=== PATIENT | female | born 1970 | race Caucasian/White ===

== ENCOUNTER 2016-10-05 12:30 | Emergency (ER) | payer OTHER ==
[2013-09-15 18:25] VITALS: BMI 28.7
[~2016-10-05 12:30] MED LIST: ACETAMINOPHEN500 M1; ACETAMINOPHEN500 M1 PO; ACIPHEX20 MG; ACIPHEX20 MG PO; CYMBALTA60 MG PO; DYAZIDE 37.5/251 CAP PO; ESTRACE1 MG PO; K-DUR20 MEQ PO; MIRALAX17 GM PO; NEURONTIN600 MG PO; NORCO 10/325 TA1 TA1 PO; PHENERGAN25 M1 PO; RELPAX20 MG PO; SOMA350 MG PO; TOPAMAX50 MG PO; TOPROL XL50 MG PO; VIVELLE-DO1 PATCH.B1 TD; XANAX0.5 MG PO
[2016-10-05 13:04] LABS: BASOPHILS 0.3 % (0-2); EOSINOPHILS 0.9 % (0-7); HEMATOCRIT 42.5 % (36.0-48.0); HEMOGLOBIN 14.3 g/dL (12-16); IMMATURE GRANULOCYTES 0.3 % (0-5); LYMPHOCYTES 33.7 % (15-50); MCH 29.6 pg (26.0-34.0); MCHC 33.6 g/dL (31.0-37.0); MEAN PLATELET VOLUME 8.8 fL (7.4-10.4); MONOCYTES 7.2 % (2-11); NEUTROPHILS 57.6 % (40-80); RBC 4.83 10x6/uL (4.00-5.40); RDW 13.5 % (11.5-14.5); WBC 9.1 10x3/uL (4.8-10.8)
[2016-10-05 13:11] LABS: PLATELET COUNT 230 10x3/uL (130-400)
[2016-10-05 13:13] LABS: ALBUMIN 3.2 g/dL (3.4-5.0); ALKALINE PHOSPHATASE 92 U/L (46-116); ALT (SGPT) 20 U/L (10-68); BILIRUBIN - TOTAL 0.28 mg/dL (0.2-1.3); CALC OSMOLALITY 277 mosm/kg (275-300); CALCIUM 8.7 mg/dL (8.5-10.1); CARBON DIOXIDE 38.4 mmol/L (21.0-32.0); CHLORIDE - SERUM 99 mmol/L (98-107); CREATININE - SERUM 0.8 mg/dL (0.6-1.3); GLUCOSE 108 mg/dL (74-106); PROTEIN - SERUM 7.2 g/dL (6.4-8.2); SODIUM 140 mmol/L (136-145); UREA NITROGEN 8 mg/dL (7-18); eGFR NON AFRICAN AMERICAN 81 mL/min (90-120)
[2016-10-05 13:29] LABS: UDS - AMPHET NEGATIVE QUAL (NEGATIVE); UDS - BARB NEGATIVE QUAL (NEGATIVE); UDS - BENZO NEGATIVE QUAL (NEGATIVE); UDS - COCAINE NEGATIVE QUAL (NEGATIVE); UDS - METH NEGATIVE QUAL (NEGATIVE); UDS - OPIATE NEGATIVE QUAL (NEGATIVE); UDS - PCP NEGATIVE QUAL (NEGATIVE); UDS - THC NEGATIVE QUAL (NEGATIVE)
[2016-10-05 13:32] LABS: POTASSIUM - SERUM 2.9 mmol/L (3.5-5.1)
[2016-10-05 13:35] LABS: APPEARANCE CLEAR (CLEAR); BILIRUBIN NEGATIVE (NEGATIVE); COLOR STRAW (YELLOW); GLUCOSE NEGATIVE (NEGATIVE); KETONE NEGATIVE (NEGATIVE); LEUKOCYTE ESTERASE NEGATIVE (NEGATIVE); NITRITE NEGATIVE (NEGATIVE); PROTEIN NEGATIVE (NEGATIVE); SPECIFIC GRAVITY 1.005 (1.005-1.020); UROBILINOGEN NORMAL (NORMAL)
== END 2016-10-05 17:30 | disposition home or self-care (01) ==
LOC: D.ER 12:30
PROVIDERS: Emergency Medicine; Nurse Practitioner Family
DX: R55 Syncope and collapse (principal); E87.6 Hypokalemia; R53.1 Weakness

== ENCOUNTER 2016-11-04 08:52 | Emergency (ER) | payer OTHER ==
[2013-09-15 18:25] VITALS: BMI 28.7
[2016-11-04 09:40] LABS: BASOPHILS 0.3 % (0-2); EOSINOPHILS 0.8 % (0-7); HEMATOCRIT 40.2 % (36.0-48.0); HEMOGLOBIN 13.4 g/dL (12-16); IMMATURE GRANULOCYTES 0.3 % (0-5); LYMPHOCYTES 32.9 % (15-50); MCH 29.9 pg (26.0-34.0); MCHC 33.3 g/dL (31.0-37.0); MCV 89.7 fL (80.0-100.0); MEAN PLATELET VOLUME 9.1 fL (7.4-10.4); MONOCYTES 7.8 % (2-11); NEUTROPHILS 57.9 % (40-80); PLATELET COUNT 197 10x3/uL (130-400); RBC 4.48 10x6/uL (4.00-5.40); RDW 13.8 % (11.5-14.5); WBC 8.7 10x3/uL (4.8-10.8)
[2016-11-04 10:11] LABS: ANION GAP 11.2 mmol/L (8-16); BILIRUBIN - TOTAL 0.2 mg/dL (0.2-1.3); CALCIUM 8.3 mg/dL (8.5-10.1); CARBON DIOXIDE 30.1 mmol/L (21.0-32.0); CREATININE - SERUM 0.9 mg/dL (0.6-1.3); POTASSIUM - SERUM 3.3 mmol/L (3.5-5.1); PROTEIN - SERUM 6.1 g/dL (6.4-8.2)
[2016-11-04 11:15] LABS: APPEARANCE CLEAR (CLEAR); BILIRUBIN NEGATIVE (NEGATIVE); COLOR YELLOW (YELLOW); GLUCOSE NEGATIVE (NEGATIVE); KETONE NEGATIVE (NEGATIVE); LEUKOCYTE ESTERASE NEGATIVE (NEGATIVE); NITRITE NEGATIVE (NEGATIVE); PROTEIN NEGATIVE (NEGATIVE); UROBILINOGEN NORMAL (NORMAL)
== END 2016-11-04 15:26 | disposition home or self-care (01) ==
LOC: D.ER 08:52
PROVIDERS: Emergency Medicine
DX: R55 Syncope and collapse (principal); R51 Headache

== ENCOUNTER 2018-10-31 06:05 | Day surgery (SDC) | payer OTHER ==
[~2018-10-31] VITALS: Ht 154.9 cm; Wt 74.4 kg
[~2018-10-31 06:05] MED LIST changes: -DYAZIDE 37.5/251 CAP PO; +MAXZIDE 75/501 TAB PO
[2018-10-31 06:28] LABS: HEMOGLOBIN 13.9 g/dL (12-16); MCH 29.1 pg (26.0-34.0); MCHC 33.9 g/dL (31.0-37.0); RBC 4.77 10x6/uL (4.00-5.40); RDW 14.4 % (11.5-14.5); WBC 8.4 10x3/uL (4.8-10.8)
[2018-10-31] MEDS ORDERED: POTASSIUM CHLO10 ME1 PO (07:46)
[2018-10-31] MEDS ORDERED: NEURONTIN800 MG PO (07:46)
[2018-10-31] MEDS ORDERED: BACLOFEN20 M1 PO (07:47)
[2018-10-31] MEDS ORDERED: MAXALT10 MG PO (07:47)
[2018-10-31] MEDS ORDERED: ARTHROTEC EC 71 EACH PO (07:48)
[2018-10-31] MEDS ORDERED: ATIVAN1 MG PO (07:48)
[2018-10-31] MEDS ORDERED: [UNRECOGNIZED DRUG - CODE] (07:49)
[2018-10-31] MEDS ORDERED: REQUIP5 MG PO (07:49)
[2018-10-31] MEDS ORDERED: LISINOPRIL10 MG PO (07:49)
[2018-10-31] MEDS ORDERED: MAGNESIUM OXID500 MG PO (07:50)
[2018-10-31] MEDS ORDERED: B-12 (07:51)
[2018-10-31] MEDS ORDERED: TRAZODONE HCL150 MG PO (07:51)
[2018-10-31] MEDS ORDERED: ULTRAM50 MG PO (07:52)
[2018-10-31] MEDS ORDERED: MECLIZINE HCL25 MG PO (07:52)
[2018-10-31] MEDS ORDERED: TESSALON PERLE100 MG PO (07:53)
[2018-10-31 07:58] VITALS: BP 120/69; Ht 154.9 cm; Wt 74.4 kg
--- NOTE | 2018-10-31 12:51 | NUR ---
SCOPE PATCH BEHIND LEFT EAR ON ADMIT
--- NOTE | 2018-10-31 15:39 | NUR ---
IV REMOVED 1525 VOIDED ON BEDSIDE COMMODE AT 1530
--- NOTE | 2018-11-07 07:45 | OP ---
PATIENT NAME: STEFANI KESSLER MEDICAL RECORD: [id number] :68 LOCATION:D.OPS ADMISSION DATE: SURGEON: GENO REYES DPM DATE OF OPERATION: 10/31/2018 PREOPERATIVE DIAGNOSES: 1. Right ankle arthritis with capsulitis. 2. Right ATF rupture. POSTOPERATIVE DIAGNOSES: 1. Right ankle arthritis with capsulitis. 2. Right ATF rupture. PROCEDURES: 1. Right ankle arthroscopy. 2. Right ATF repair. ANESTHESIA: General with local infiltrate utilizing lidocaine and Marcaine plain, approximately 20 cc around and in the right ankle. HEMOSTASIS: Right thigh tourniquet at 350 mmHg. PREOPERATIVE DETAILS: The patient was taken to the OR and placed on the operating table in supine position. This was followed by induction of general anesthesia and infiltration of local anesthetic. The right extremity was then prepped and draped in usual aseptic technique followed by exsanguination and inflation of tourniquet. PROCEDURE #1: Right ankle scope. A #15 blade was used to create 2 small stab incisions, one in the anteromedial shoulder and one overlying the anterolateral shoulder. The incisions were deepened down bluntly. The joint capsule was then punctured. Trocar and cannula were then introduced laterally. Initial visualization showed significant adhesive capsulitis along the anterior aspect of the ankle. Synovial shaver was introduced in the medial portal and extensive debridement was performed. Following debridement, the portals were switched. The camera was introduced medially and the synovial shaver laterally. Continued extensive debridement was performed, removing all adhesive capsulitis and chondromalacia on the anterior distal tibia. The talar dome was fairly marked with irregularities, but the cartilage was intact. Camera and synovial shaver were then removed. PROCEDURE #2: Right ATF repair. The lateral stab incision was lengthened distally and proximally in a J-shape along the anterior coursing of the distal fibula. The incision was deepened down through subcutaneous tissue through the deep tissue and the joint capsule. There was noted to be Ethibond from a previous attempted repair. Once the anterior distal tibia was acquired as well as the neck of the talus, internal brace was placed across the deficit, noting excellent range of motion as well as stability of the ankle joint. Utilizing FiberWire, the joint capsule as well as the existing ATF ligament were tightened in a Brostrom-type technique. This was followed by augmenting those sutures with 2-0 Vicryl in the deep tissue followed by closure of the subcutaneous tissue with 4-0 Rapide and the skin was closed with 4-0 Rapide in a subcuticular technique. The anteromedial shoulder stab incision was also closed with 4-0 Rapide followed by Dermabond. Adaptic, 4 x 4, and Conform were used to dress the wounds followed by application of modified Banegas compression dressing. OPERATIVE REPORT [id number] STEFANI KESSLER Tourniquet was deflated. POSTOPERATIVE DETAILS: The patient tolerated the procedure well and left the OR with vital signs stable and vascular status at preoperative levels. The patient was transported to recovery per anesthesia in stable condition. TRANSINT:[id number] Voice Confirmation ID: [id number] DOCUMENT ID: [id number] GENO REYES DPM at 0745 CC: [id number] DICTATION DATE: 10/31/18 1231 NET LEAD DEVELOPER: 10/31/181955 [facility] 10/31/18 [id number] [place] [address]
== END 2018-10-31 15:45 | disposition home or self-care (01) ==
LOC: D.OPS 06:05
PROVIDERS: Anesthesiology; ATTEND Podiatrist
DX: M13.871 Other specified arthritis, right ankle and foot (principal); M77.9 Enthesopathy, unspecified; S93.491A Sprain of other ligament of right ankle, initial encounter; X58.XXXA Exposure to other specified factors, initial encounter; Z01.812 Encounter for preprocedural laboratory examination

== ENCOUNTER 2019-01-09 06:02 | Day surgery (SDC) | payer OTHER ==
[~2019-01-09] VITALS: Ht 154.9 cm; Wt 76.2 kg
[~2019-01-09 06:02] MED LIST changes: +ALDACTONE25 MG PO; +ARTHROTEC EC 71 EACH PO; +ATIVAN1 MG PO; +B-12; +BACLOFEN20 M1 PO; +LISINOPRIL10 MG PO; +MAGNESIUM OXID500 MG PO; +MAXALT10 MG PO; +MECLIZINE HCL25 MG PO; +NEURONTIN800 MG PO; +POTASSIUM CHLO10 ME1 PO; +REQUIP5 MG PO; +TESSALON PERLE100 MG PO; +TRAZODONE HCL150 MG PO; +ULTRAM50 MG PO; +[UNRECOGNIZED DRUG - CODE]
[2019-01-09 06:25] LABS: HEMATOCRIT 41.7 % (36.0-48.0); HEMOGLOBIN 14.3 g/dL (12-16); MCH 28.6 pg (26.0-34.0); MCHC 34.3 g/dL (31.0-37.0); MCV 83.4 fL (80.0-100.0); MEAN PLATELET VOLUME 8.6 fL (7.4-10.4); WBC 7.8 10x3/uL (4.8-10.8)
[2019-01-09 06:47] VITALS: BP 124/76; Ht 154.9 cm; Wt 76.2 kg
--- NOTE | 2019-01-09 11:01 | NUR ---
CONSULTED ANESTHESIA REGARDING PAIN AT 01/05. DR GARRETT AT BEDSIDE. REBLOCKED POPLITEAL NERVE. WILL CONTINUE TO MONITOR.
--- NOTE | 2019-01-16 08:14 | OP ---
PATIENT NAME: STEFANI KESSLER MEDICAL RECORD: [id number] :68 LOCATION:D.OPS ADMISSION DATE: SURGEON: GENO REYES DPM DATE OF OPERATION: 01/09/2019 PREOPERATIVE DIAGNOSES: 1. Left ankle capsular adhesions. 2. ATF rupture, left lateral ankle. POSTOPERATIVE DIAGNOSES: 1. Left ankle capsular adhesions. 2. ATF rupture, left lateral ankle. PROCEDURES: 1. Left ankle arthroscopy. 2. Left lateral collateral ankle ligament repair, specifically repairing the ATF ligament. ANESTHESIA: Preoperative popliteal block per the anesthesia department as well as intraoperative general anesthesia, as well as 5 mL of lidocaine and Marcaine around the medial ankle. HEMOSTASIS: Left thigh tourniquet at 350 mmHg. PREOPERATIVE DETAILS: The patient was taken to the OR and placed on the operating table in a supine position. This was followed by induction of general anesthesia. The left extremity was then prepped and draped in the usual aseptic technique followed by exsanguination and inflation of tourniquet. A 5 cc of local anesthetic were then infiltrated in a V-block fashion on the proximal medial ankle. A 15-blade was used to create 2 small stab incisions over the medial anterior gutter and lateral anterior gutter. Incision was deepened down with a mosquito hemostat, the ankle joint was punctured. The camera was introduced laterally. First, inspection of the ankle joint showed significant capsular adhesions both medial and lateral with capsulitis and synovitis. The synovial shaver was then introduced in the medial port. Extensive debridement was then performed of the capsular adhesions, synovitis as well as anterior distal chondromalacia of the distal tibia. The portals were switched with the camera being introduced medially and the synovial shaver introduced laterally and continued extensive debridement occurred along the anterior medial, anterior, and anterior lateral aspect of the joint. There was noted to be significant adhesions on the anterior lateral aspect of the joint, which were removed with the synovial shaver. The camera and synovial shaver were removed. PROCEDURE #2: Lateral collateral ligament repair, specifically the ATF ligament. The incision as described above on the anterior lateral shoulder of the ankle was extended distally and around the curvature of the distal fibula. The incision was deepened down through subcutaneous tissue to the ankle joint capsule. It was incised sharply with an arthrotomy exposing the lateral joint. As noted, the ATF ligament was ruptured. At this time, the distal fibula and lateral aspect of the talus were prepped for reconstruction utilizing the technique for the internal brace. The drill hole was made in the talus as well as the fibula. The talus was tapped, implant placed, FiberWire passed through the bone anchor and the internal brace was fastened to the fibula being sure to support the lower leg with blue towels being sure to give adequate relaxation of the joint. Once the internal brace was placed properly, there was noted to be OPERATIVE REPORT [id number] STEFANI KESSLER excellent range of motion of the joint as well as strength and stability. The anterior drawer test was negative. At this time, a 2-0 FiberWire was used to perform a modified Brostrom over the top of the repair. The subcutaneous tissue was then closed with 4-0 Rapide and the skin was closed with 4-0 Rapide in a subcuticular technique followed by Dermabond. The anterior medial stab incision was also closed in a simple interrupted technique followed by Dermabond. Adaptic, 4 x 4 and Conform were used to dress the wound followed by application of modified Banegas compression dressing. The tourniquet was deflated. POSTOPERATIVE DETAILS: The patient tolerated the procedure well and left the OR with vital signs stable and vascular status at preoperative levels. The patient was transported to recovery per anesthesia in stable condition. TRANSINT:[id number] Voice Confirmation ID: [id number] DOCUMENT ID: [id number] GENO REYES DPM at 0814 CC: [id number] DICTATION DATE: 01/09/19 1011 ORNAMENTAL METAL ERECTOR: 01/09/19 1213 [facility] 01/09/19 [facility] [address] [place] [address]
== END 2019-01-09 12:58 | disposition home or self-care (01) ==
LOC: D.OPS 06:02 → D.PAN 08:00 → D.OPS 12:58
PROVIDERS: Anesthesiology; ATTEND Podiatrist
DX: M24.672 Ankylosis, left ankle (principal); S93.492A Sprain of other ligament of left ankle, initial encounter; X58.XXXA Exposure to other specified factors, initial encounter; Z01.812 Encounter for preprocedural laboratory examination